=== PATIENT | male | born 1970 | race Caucasian/White ===

== ENCOUNTER 2017-06-16 07:38 | Emergency (ER) | payer BC ==
[2017-06-16 07:43] VITALS: RESP 16
[2017-06-16] MEDS ORDERED: NS 1,000 ML IV ONE ×2 (08:02)
[2017-06-16] MEDS ORDERED: METOCLOPRAMIDE 10 MG/2 ML VIAL IVP ONE ×2 (08:03)
--- NOTE | 2017-06-16 08:05 | EDPHY ---
H & P Time Seen by Provider: 06/16/17 07:51 HPI/ROS: CHIEF COMPLAINT: Abdominal pain, vomiting and diarrhea HISTORY OF PRESENT ILLNESS: 46-year-old male presents with abdominal pain. He awoke at 1:00 a.m. with severe abdominal cramping in the upper abdomen. The cramping continued and he tried Pepto-Bismol without relief. At 3:00 a.m., he had multiple episodes of vomiting and diarrhea. The pain migrated to the right lower quadrant. The pain continues to be in the right lower quadrant and waxes and wanes. No fever. Prior umbilical hernia repair. REVIEW OF SYSTEMS: Constitutional: No fever, no chills Eyes: No visual changes ENT: No sore throat Respiratory: No cough, no shortness of breath Cardiac: No chest pain Genitourinary: No hematuria, no dysuria Musculoskeletal: No leg pain or swelling Skin: No rash Neurological: No headache, no weakness Psychiatric: No depression Social History: Smoking Status: Never smoked Physical Exam: General Appearance: Alert, pleasant Eyes: Pupils equal and round, no conjunctival pallor ENT, Mouth: Mucous membranes moist Neck: Normal inspection Respiratory: Lungs are clear to auscultation Cardiovascular: Regular rate and rhythm Gastrointestinal: Abdomen is soft, right lower quadrant tenderness, hyperactive bowel sounds Neurological: A&O, nonfocal, normal gait Skin: Warm and dry, no rash Extremities: Nontender, no pedal edema Psychiatric: Mood and affect normal Constitutional: Initial Vital Signs Temperature (C) 36.7 C 06/16/17 07:41 Heart Rate 69 06/16/17 07:41 Respiratory Rate 16 06/16/17 07:41 Blood Pressure 120/85 H 06/16/17 07:41 O2 Sat (%) 93 06/16/17 07:41 O2 Delivery Mode Room Air Allergies/Adverse Reactions: No Known Allergies Allergy (Verified 06/16/17 07:40) Home Medications: Medication Instructions Recorded Ondansetron Odt [Zofran Odt 4 mg 4 mg PO Q4 PRN #6 tab 06/16/17 (*)] Medical Decision Making - Diagnostics Imaging Results: Imaging Impressions Abdomen CT 06/16/17 08:03 Impression: 1. A few tiny stones versus early contrast accumulation within calyces of both kidneys. 2. Mild colonic diverticulosis. 3. No hernia is identified. I telephoned results to Dr. Jeanine Ga at 0913 hours. ED Course/Re-evaluation: This patient presents with vomiting, diarrhea and right lower quadrant abdominal pain. Concerning for acute appendicitis. CT of the abdomen and pelvis ordered. Reglan and Benadryl IV given for abdominal pain and vomiting. 9:15 a.m.-CT scan results discussed with Dr. Edgar Cordero. No evidence of appendicitis. Results discussed with the patient. Toradol 15 mg IV given. He feels better. Abdomen is soft, mild right lower quadrant tenderness, though improved. Abdominal pain precautions given. Differential Diagnosis: Differential diagnosis includes though it is not limited to appendicitis, cholecystitis, diverticulitis, pyelonephritis, bowel perforation, small bowel obstruction. - Data Points Laboratory Results: Laboratory Results 06/16/17 08:02 06/16/17 08:02 06/16/17 06/16/17 06/16/17 08:02 08:02 07:57 WBC 6.77 10^3/uL 10^3/uL (3.80-9.50) RBC 4.78 10^6/uL 10^6/uL (4.40-6.38) Hgb 15.6 g/dL g/dL (13.7-17.5) POC Hgb 16.0 gm/dL gm/dL (13.7-17.5) Hct 44.0 % % (40.0-51.0) POC Hct 47 % % (40-51) MCV 92.1 fL fL (81.5-99.8) MCH 32.6 pg pg (27.9-34.1) MCHC 35.5 g/dL g/dL (32.4-36.7) RDW 12.1 % % (11.5-15.2) Plt Count 187 10^3/uL 10^3/uL (150-400) MPV 9.3 fL fL (8.7-11.7) Neut % (Auto) 72.5 % % (39.3-74.2) Lymph % (Auto) 20.4 % % (15.0-45.0) [place] % (Auto) 5.8 % % (4.5-13.0) Eos % (Auto) 0.7 % % (0.6-7.6) Baso % (Auto) 0.3 % % (0.3-1.7) Nucleat RBC Rel Count 0.0 % % (0.0-0.2) Absolute Neuts (auto) 4.91 10^3/uL 10^3/uL (1.70-6.50) Absolute Lymphs (auto) 1.38 10^3/uL 10^3/uL (1.00-3.00) Absolute Monos (auto) 0.39 10^3/uL 10^3/uL (0.30-0.80) Absolute Eos (auto) 0.05 10^3/uL 10^3/uL (0.03-0.40) Absolute Basos (auto) 0.02 10^3/uL 10^3/uL (0.02-0.10) Absolute Nucleated RBC 0.00 10^3/uL 10^3/uL (0-0.01) Immature Gran % 0.3 % % (0.0-1.1) Immature Gran # 0.02 10^3/uL 10^3/uL (0.00-0.10) POC Sodium 141 mEq/L mEq/L (134-144) Sodium 140 mEq/L mEq/L (134-144) POC Potassium 4.1 mEq/L mEq/L (3.3-5.0) Potassium 3.9 mEq/L mEq/L (3.5-5.2) POC Chloride 105 mEq/L mEq/L (97-110) Chloride 104 mEq/L mEq/L (97-110) Carbon Dioxide 25 mEq/l mEq/l (22-31) Anion Gap 11 mEq/L mEq/L (8-16) POC BUN 23 mg/dL mg/dL (7-23) BUN 18 mg/dL mg/dL (7-23) Creatinine 0.9 mg/dL mg/dL (0.7-1.3) POC Creatinine 1.0 mg/dL mg/dL (0.7-1.3) Estimated GFR > 60 Glucose 116 mg/dL H mg/dL (70-100) POC Glucose 121 mg/dL H mg/dL (70-100) Calcium 9.1 mg/dL mg/dL (8.5-10.4) Medications Given: Discontinued Medications Diphenhydramine HCl (Benadryl Injection) 25 mg IVP EDNOW ONE Stop: 06/16/17 08:04 Last Admin: 06/16/17 08:16 Dose: 25 mg Sodium Chloride (Ns) 1,000 mls @ 0 mls/hr IV EDNOW ONE; Wide Open PRN Reason: Protocol Stop: 06/16/17 08:03 Last Admin: 06/16/17 08:15 Dose: 1,000 mls Ketorolac Tromethamine (Toradol) 15 mg IVP EDNOW ONE Stop: 06/16/17 09:16 Last Admin: 06/16/17 09:23 Dose: 15 mg Metoclopramide HCl (Reglan Injection) 10 mg IVP EDNOW ONE Stop: 06/16/17 08:04 Last Admin: 06/16/17 08:16 Dose: 10 mg Point of Care Test Results: 06/16/17 07:57 POC Sodium 141 POC Potassium 4.1 POC Chloride 105 POC BUN 23 POC Creatinine 1.0 POC Glucose 121 H Departure - Departure Disposition: Home, Routine, Self-Care Clinical Impression: Vomiting and diarrhea Abdominal pain Qualifiers: Abdominal location: right lower quadrant Qualified Code(s): R10.31 - Right lower quadrant pain Condition: Good Instructions: Acute Nausea and Vomiting (ED), Acute Abdominal Pain (ED) Additional Instructions: Clear fluids for 24 hours. Return for worsening symptoms or any concerns. Referrals: Korey Foster MD [Medical Doctor] - 1 day, if not improved Prescriptions: Ondansetron Odt [Zofran Odt 4 mg (*)] 4 mg PO Q4 PRN #6 tab PRN Reason: Nausea
[2017-06-16 08:10] LABS: PLATELET COUNT 187 10^3/uL (150-400)
[2017-06-16] MEDS ORDERED: IOPAMIDOL (ISOVUE-300) 100 ML BTL ONE ×2 (08:11)
[2017-06-16] MEDS ORDERED: KETOROLAC 15 MG/1 ML SDV IVP ONE ×2 (09:15)
[2017-06-16 09:38] VITALS: BP 120/80; PULSE 67; TEMP 97.2; O2SAT 97
== END 2017-06-16 09:39 | disposition home or self-care (01) ==
PROC: 3E0337Z Introduction of Electrolytic and Water Balance Substance into Peripheral Vein, Percutaneous Approach (ICD-10-PCS; principal; 2017-06-16)
DX: R19.7 Diarrhea, unspecified (principal); R11.10 Vomiting, unspecified; R10.31 Right lower quadrant pain; E86.9 Volume depletion, unspecified
CPT/HCPCS: 82947-QW; 96374; J1200; J1885; J2765; Q9967